=== PATIENT | female | born 1985 | race Asian ===

== ENCOUNTER → 2019-02-03 | Outpatient (CLI) | payer OTHER ==
--- NOTE | 2019-02-03 11:19 | REP ---
FIRST TRIMESTER ULTRASOUND: Real-time sonographic evaluation of the pelvis performed utilizing transabdominal and endovaginal technique. There is an intrauterine sac with a mean sac diameter of 29 mm, which would correspond to an estimated gestational age of 8 weeks. However, no yolk sac or pole is seen internally. Uterine length is 10.4 cm. Right ovary measures 2.8 x 2.3 x 2.5 cm and left ovary 3.3 x 1.5 x 2.2 cm. Complex cystic structure in the right ovary probably represents a corpus luteum 1.8 cm in diameter. There is no torsion. There is no other evidence of adnexal mass or free fluid. Findings probably represent a blighted ovum. However ectopic cannot totally be excluded. Suggest correlation with serial quantitative beta HCG values. Electronically Signed by Freddy Zamudio MD 02/03/2019 03:33 P
== END ==
LOC: M RAD 09:45
PROVIDERS: ATTEND Obstetrics & Gynecology
DX: R79.9 Abnormal finding of blood chemistry, unspecified (principal); Z3A.08 8 weeks gestation of pregnancy

== ENCOUNTER 2019-02-24 11:30 | Day surgery (SDC) | payer OTHER ==
[~2019-02-24] VITALS: Ht 152.4 cm; Wt 57.1 kg
[2019-02-24] MEDS ORDERED: ceFAZolin 1GM INJ (J0690 PER 500MG) As Ordered ONE (12:17)
[2019-02-24] MEDS ORDERED: ACETAMINOPHEN 650 MG SUPP As Ordered ONE (12:27)
[2019-02-24] MEDS ORDERED: ACETAMINOPHEN 650 MG SUPP PR ONE (12:30)
[2019-02-24] MEDS ORDERED: ceFAZolin SOD 1 GM in D5W MINI-BAG PLUS 50 ML IV ONE (12:30)
[2019-02-24 12:32] LABS: HEMATOCRIT 34.3 % (36.0-47.0); HEMOGLOBIN 11.3 g/dl (12.0-15.5); MEAN CORPUSCULAR HEMOGLOBIN 27.8 pg (27.0-33.0); MEAN CORPUSCULAR HGB CONC 32.9 g/dl (32.0-36.5); MEAN CORPUSCULAR VOLUME 84.3 fl (80.0-96.0); PLATELET COUNT, AUTOMATED 444 10^3/uL (150-450); RED BLOOD COUNT 4.07 10^6/uL (4.00-5.40); WHITE BLOOD COUNT 7.5 10^3/uL (4.0-10.0)
[2019-02-24] MEDS ORDERED: ONDANSETRON 4MG/2ML VIAL (J2405) As Ordered ONE (13:13)
[2019-02-24] MEDS ORDERED: OXYTOCIN INJ 10 UNITS/ML VIAL (J2590) As Ordered ONE (13:13)
[2019-02-24] MEDS ORDERED: MIDAZOLAM INJ 5 MG/ML VIAL (J2250) As Ordered ONE (13:13)
[2019-02-24] MEDS ORDERED: PROPOFOL 200 MG/20 ML VIAL As Ordered ONE (13:13)
[2019-02-24] MEDS ORDERED: KETOROLAC 60 MG/2 ML VIAL (J1885) As Ordered ONE (13:13)
[2019-02-24] MEDS ORDERED: LIDOCAINE 2% INJ 100 MG/5 ML SDV (FOR ANES.) As Ordered ONE (13:13)
[2019-02-24] MEDS ORDERED: fentaNYL 250 MCG/5 ML INJECTION (J3010) As Ordered ONE (13:13)
[2019-02-24] MEDS ORDERED: dexameTHASONE 4 MG/ML 1ML VIAL (J1100) As Ordered ONE (13:14)
[2019-02-24 13:19] LABS: BLOOD UREA NITROGEN 12 MG/DL (7-18); CALCIUM LEVEL 8.3 MG/DL (8.5-10.1); CARBON DIOXIDE LEVEL 27 MEQ/L (21-32); CHLORIDE LEVEL 108 MEQ/L (98-107); CREATININE FOR GFR 0.72 MG/DL (0.55-1.30); GLOMERULAR FILTRATION RATE > 60.0 (>60); GLUCOSE, FASTING 80 MG/DL (70-100); HCG, SERUM QUANTITATIVE 298 MIU/ML; POTASSIUM SERUM 3.9 MEQ/L (3.5-5.1); SODIUM LEVEL 139 MEQ/L (136-145)
[2019-02-24] MEDS ORDERED: ONDANSETRON 4MG/2ML VIAL (J2405) IV PRN (13:30)
[2019-02-24] MEDS ORDERED: LR 1,000 ML IV SCH (13:30)
[2019-02-24] MEDS ORDERED: KETOROLAC 30 MG/ML VIAL (J1885) IV PRN (13:30)
[2019-02-24 14:30] VITALS: BP 114/73
== END 2019-02-24 14:30 | disposition home or self-care (01) ==
LOC: M SDC 11:30
PROVIDERS: ATTEND Obstetrics & Gynecology
DX: O02.1 Missed abortion (principal)
CPT/HCPCS: 36415; 59820; 80048; 84702; 85027; 88305; J0690; J1100; J1885; J2250; J2405; J2590; J3010